=== PATIENT | male | born 1990 | race Caucasian/White ===

== ENCOUNTER 2017-06-18 01:47 | Emergency (ER) | payer BC ==
[2017-06-18] MEDS ORDERED: Acetaminophen TAB* 325 MG PO ONE (02:09)
--- NOTE | 2017-06-18 02:10 | ED ---
Lower Extremity - HPI Summary HPI Summary: 26M presents with right ankle pain today. He states he was walking down the driving way and felt a pop. He states it brought him to his knees. He denies any numbness or tingling. He denies any previous injury to the area. He states the pain brought him to his knees. He has not been able to ambulate since. He took ibuprofen for pain. He inverted his ankle. smells of ETOH. - History of Current Complaint Chief Complaint: EDExtremityLower Stated Complaint: RIGHT ANKLE INJURY Time Seen by Provider: 06/18/17 02:00 Pain Intensity: 10 - Allergies/Home Medications Allergies/Adverse Reactions: Allergies Allergy/AdvReac Type Severity Reaction Status Date / Time Amoxicillin Allergy Hives Verified 07/18/15 15:53 Sulfa Antibiotics Allergy Hives Verified 07/18/15 15:53 PMH/Surg Hx/FS Hx/Imm Hx Endocrine/Hematology History: Denies: Hx Diabetes Respiratory History: Reports: Hx Asthma Denies: Hx Chronic Obstructive Pulmonary Disease (COPD), Hx Lung Cancer Sensory History: Denies: Hx Contacts or Glasses Opthamlomology History: Denies: Hx Contacts or Glasses Neurological History: Denies: Hx Transient Ischemic Attacks (TIA) Psychiatric History: Denies: Hx Anxiety - Surgical History Surgery Procedure, Year, and Place: appy Infectious Disease History: No Infectious Disease History: Denies: Traveled Outside the in Last 30 Days - Family History Known Family History: Positive: None - Social History Alcohol Use: Occasionally Substance Use Type: Reports: None Smoking Status (MU): Current Every Day Smoker Type: Cigarettes Amount Used/How Often: 1 pack daily Have You Smoked in the Last Year: Yes Review of Systems Negative: Fever Negative: Chest Pain Negative: Shortness Of Breath Positive: Myalgia - right ankle injury All Other Systems Reviewed And Are Negative: Yes Physical Exam Triage Information Reviewed: Yes Vital Signs On Initial Exam: Initial Vitals Temp Pulse Resp BP Pulse Ox 97.9 F 110 16 130/84 99 06/18/17 01:49 06/18/17 01:49 06/18/17 01:49 06/18/17 01:49 06/18/17 01:49 Vital Signs Reviewed: Yes Appearance: Positive: Well-Appearing Skin: Positive: Warm, Dry Head/Face: Positive: Normal Head/Face Inspection Eyes: Positive: Normal, Conjunctiva Clear Respiratory/Lung Sounds: Positive: Clear to Auscultation, Breath Sounds Present Cardiovascular: Positive: Normal, RRR Musculoskeletal: Positive: Limited @ - right ankle, Edema Right - lateral aspect right ankle, Other - good pulse, capillary refill<2 secs, sensation grossly intact, tenderness over lateral aspect right ankle Neurological: Positive: Normal Diagnostics - Vital Signs Vital Signs Temp Pulse Resp BP Pulse Ox 06/18/17 01:49 97.9 F 110 16 130/84 99 - Laboratory Lab Statement: Any lab studies that have been ordered have been reviewed, and results considered in the medical decision making process. - Radiology ankle Xray Interpretation: No Acute Changes Radiology Interpretation Completed By: ED Physician Lower Extremity Course/Dx - Course Course Of Treatment: 26M presents with right ankle pain today. He states he was walking down the driving way and felt a pop. He states it brought him to his knees. He denies any numbness or tingling. He denies any previous injury to the area. He states the pain brought him to his knees. He has not been able to ambulate since. He took ibuprofen for pain. He inverted his ankle. on exam tenderness over lateral aspect of right ankle, neurovascular intact. xray read by me as normal. will treat as sprain with crutches. SOHA. patient understand and agrees with plan. - Diagnoses Differential Diagnosis/HQI/PQRI: Positive: Fracture (Closed), Sprain, Strain Provider Diagnoses: Right ankle injury Discharge - Discharge Plan Condition: Good Disposition: HOME Patient Education Materials: Ankle Sprain (ED) Referrals: [facility] [place] [facility]IAN REFERRAL [Outside] Additional Instructions: Stay off ankle as much as possible Ice, elevate, keep in [place] Ibuprofen or tyenlol every 6 hours for pain Follow up with primary if no improvement Return to ED if develop or any new or worsening symptoms
[2017-06-18 03:01] VITALS: BP 130/84
--- NOTE | 2017-06-18 07:58 | RAD ---
INDICATION: Right ankle injury COMPARISON: None TECHNIQUE: AP, lateral, and oblique views were obtained. FINDINGS: The bony structures, joint spaces, and soft tissues are normal for age. IMPRESSION: NEGATIVE EXAMINATION.
== END 2017-06-18 02:30 | disposition home or self-care (01) ==
LOC: ED 01:47
DX: S99.911A Unspecified injury of right ankle, initial encounter (principal); X50.9XXA Other and unspecified overexertion or strenuous movements or postures, initial encounter; Y93.9 Activity, unspecified; Y92.9 Unspecified place or not applicable; F17.210 Nicotine dependence, cigarettes, uncomplicated
CPT/HCPCS: 99282; A9270-GY

== ENCOUNTER 2017-12-30 14:08 | Emergency (ER) | payer BC, OTHER ==
--- NOTE | 2017-12-30 14:25 | UC ---
Laceration HPI - HPI Summary HPI Summary: 27 yo male presents with puncture wound to left foot. He tells me that last night he was intoxicated walking barefoot in a yard and stepped on a piece of lina metal. Sustained a puncture wound to the bottom of his foot. He cleaned it out well with soap and water and put a band-aid on it. He is here today because his last tetanus shot was about 10 years ago and he would like this updated. Ambulating without difficulty or pain. Denies fever or chills. - History Of Current Complaint Stated Complaint: FOOT LAC Time Seen by Provider: 12/30/17 14:25 Hx Obtained From: Patient Laceration Location: Foot Mechanism Of Injury: Sharp Trauma Onset/Duration: Sudden Onset - Allergies/Home Medications Allergies/Adverse Reactions: Allergies Allergy/AdvReac Type Severity Reaction Status Date / Time amoxicillin Allergy Hives Verified 12/30/17 14:19 Sulfa (Sulfonamide Allergy Hives Verified 12/30/17 14:19 Antibiotics) Home Medications: Home Medications Acetaminophen [Acetaminophen Extra Strength] 1,000 mg PO ONCE 12/30/17 [History Confirmed 12/30/17] PMH/Surg Hx/FS Hx/Imm Hx Respiratory History: Asthma Other History Of: Negative For: HIV - Surgical History Surgical History: Yes Surgery Procedure, Year, and Place: appy - Family History Known Family History: Positive: None - Social History Lives: Alone Alcohol Use: Occasionally Substance Use Type: None Smoking Status (MU): Current Every Day Smoker Type: Cigarettes Amount Used/How Often: 1 pack daily Have You Smoked in the Last Year: Yes Review of Systems Constitutional: Negative Skin: Other - Puncture wound left plantar foot Respiratory: Negative Cardiovascular: Negative Neurovascular: Negative Musculoskeletal: Negative Neurological: Negative Psychological: Negative All Other Systems Reviewed And Are Negative: Yes Physical Exam - Summary Physical Exam Summary: GENERAL: NAD. WDWN. No pain distress. SKIN: LEFT FOOT: On the plantar foot pad inferior to the great toe there is a 5mm abrasion and puncture wound. No streaking, bleeding, or drainage. NECK: Supple. Nontender. No lymphadenopathy. CHEST: No accessory muscle use. Breathing comfortably and in no distress. CV: RRR. Without m/r/g. NEURO: Alert. CN II-XII grossly intact. PSYCH: Age appropriate behavior. Triage Information Reviewed: Yes Vital Signs: Vital Signs: Temp Pulse Resp BP Pulse Ox 98.3 F 85 18 124/76 100 12/30/17 14:21 12/30/17 14:21 12/30/17 14:21 12/30/17 14:21 12/30/17 14:21 Laceration Course/Dx - Course/Dx Course Of Treatment: Wound appears clean and without FB. tdap updated today. Keep wound clean and covered with band-aid until well healed. - Differential Dx - Laceration/Wound Provider Diagnoses: Puncture wound left foot Discharge - Sign-Out/Discharge Documenting (check all that apply): Discharge/Admit/Transfer - Discharge Plan Condition: Stable Disposition: HOME Patient Education Materials: Puncture Wound (ED) Referrals: No Primary Care Phys,NOPCP [Primary Care Provider] - Additional Instructions: If you develop a fever, shortness of breath, chest pain, new or worsening symptoms - please call your PCP or go to the ED. Your tetanus shot was updated today - Billing Disposition and Condition Condition: STABLE Disposition: Home
[2017-12-30 14:27] VITALS: BP 124/76
[2017-12-30] MEDS ORDERED: Tetan/Diph/Pertus SYR(Tdap)* 0.5 ML SYR(BOOSTRIX) use SYR IM ONE (14:31)
== END 2017-12-30 14:44 | disposition home or self-care (01) ==
LOC: UCEAST 14:08
DX: S91.332A Puncture wound without foreign body, left foot, initial encounter (principal); W22.8XXA Striking against or struck by other objects, initial encounter; Y93.01 Activity, walking, marching and hiking; Y92.007 Garden or yard of unspecified non-institutional (private) residence as the place of occurrence of the external cause; Z88.0 Allergy status to penicillin; Z88.2 Allergy status to sulfonamides; F17.210 Nicotine dependence, cigarettes, uncomplicated
CPT/HCPCS: 90471; 90715; 99211; G0463

== ENCOUNTER 2018-05-08 21:01 | Emergency (ER) | payer OTHER ==
--- NOTE | 2018-05-08 21:36 | ED ---
Laceration/Wound HPI - HPI Summary HPI Summary: A 27 y/o male presents to the ED c/o a left thumb laceration at 20:10 2017. 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 He rates his pain as 1/10. He denies Fever, Chills, Erythema (eyes), Sore throat , Chest pain, Shortness of Breath, Cough, Abdominal pain, Vomiting, Nausea, Dysuria, Hematuria, Myalgia, Edema, Rash and Dizziness. tetanus UTD - History of Current Complaint Stated Complaint: LT THUMB LAC Time Seen by Provider: 05/08/18 21:21 Hx Obtained From: Patient Onset/Duration: Sudden Onset Pain Intensity: 1 Pain Scale Used: 0-10 Numeric - Allergy/Home Medications Allergies/Adverse Reactions: Allergies Allergy/AdvReac Type Severity Reaction Status Date / Time amoxicillin Allergy Hives Verified 05/08/18 21:05 Sulfa (Sulfonamide Allergy Hives Verified 05/08/18 21:05 Antibiotics) PMH/Surg Hx/FS Hx/Imm Hx Endocrine/Hematology History: Denies: Hx Diabetes Respiratory History: Reports: Hx Asthma Denies: Hx Chronic Obstructive Pulmonary Disease (COPD), Hx Lung Cancer Sensory History: Denies: Hx Contacts or Glasses Opthamlomology History: Denies: Hx Contacts or Glasses Neurological History: Denies: Hx Transient Ischemic Attacks (TIA) Psychiatric History: Denies: Hx Anxiety - Surgical History Surgery Procedure, Year, and Place: appy - Immunization History Date of Tetanus Vaccine: unk Date of Influenza Vaccine: none Infectious Disease History: No Infectious Disease History: Denies: Traveled Outside the [place] in Last 30 Days - Family History Known Family History: Positive: Cardiac Disease Negative: Hypertension, Diabetes - Social History Alcohol Use: Occasionally Substance Use Type: Reports: None Smoking Status (MU): Current Every Day Smoker Type: Cigarettes Amount Used/How Often: 1 pack daily Have You Smoked in the Last Year: Yes Review of Systems Negative: Fever, Chills Negative: Erythema Negative: Sore Throat Negative: Chest Pain Negative: Shortness Of Breath, Cough Negative: Abdominal Pain, Vomiting, Nausea Negative: dysuria, hematuria Negative: Myalgia, Edema Positive: Other - positive: laceration. Negative: Rash Neurological: Negative - dizziness All Other Systems Reviewed And Are Negative: Yes Physical Exam - Summary Physical Exam Summary: General: Well appearing, no distress Cardiovascular: Skin is well perfused Pulmonary: No respiratory distress, no tachypnea Abdomen: Non-distended Skin: Warm, pink, dry Psych: Normal affect Neuro: A&Ox3 Triage Information Reviewed: Yes Vital Signs On Initial Exam: Initial Vitals Temp Pulse Resp BP Pulse Ox 97.9 F 97 18 147/115 98 05/08/18 21:03 05/08/18 21:03 05/08/18 21:03 05/08/18 21:03 05/08/18 21:03 Vital Signs Reviewed: Yes Procedures - Laceration/Wound Repair 1 Location: upper extremity - left thumb Description: Linear Length, Depth and Shape: 1 cm Closure: Skin Adhesive Diagnostics - Vital Signs Vital Signs Temp Pulse Resp BP Pulse Ox 05/08/18 21:03 97.9 F 97 18 147/115 98 - Laboratory Lab Statement: Any lab studies that have been ordered have been reviewed, and results considered in the medical decision making process. Laceration Repair Course/Dx - Course Course Of Treatment: 27 y/o male presents to the ED c/o a left thumb laceration at 20:10 05/08/2018. I performed a laceration repair. The pt will be discharged and is agreeable to this plan. Dx: laceration - Clinical Impression Provider Diagnoses: Laceration Discharge - Sign-Out/Discharge Documenting (check all that apply): Patient Departure - DC - Discharge Plan Condition: Stable Disposition: HOME Patient Education Materials: Laceration (ED) Referrals: [facility] [place] [facility]ERR[facility] [Outside] (2-3 days) Additional Instructions: RETURN TO THE EMERGENCY DEPARTMENT FOR CHANGING OR WORSENING SYMPTOMS - Billing Disposition and Condition Condition: STABLE Disposition: Home - Attestation Statements Document Initiated by Scribe: Yes Documenting Scribe: Horacio Mary Provider For Whom Loly is Documenting (Include Credential): Jacques March MD Scribe Attestation: I, Horacio Mary, scribed for Jacques March MD on 05/08/18 at 2200. Scribe Documentation Reviewed: Yes Provider Attestation: The documentation as recorded by the Horacio butts accurately reflects the service I personally performed and the decisions made by me, Jacques March MD
[2018-05-08 21:45] VITALS: BP 135/80
== END 2018-05-08 21:44 | disposition home or self-care (01) ==
LOC: ED 21:01
DX: S61.012A Laceration without foreign body of left thumb without damage to nail, initial encounter (principal); W26.0XXA Contact with knife, initial encounter; Y93.G1 Activity, food preparation and clean up; Y92.511 Restaurant or cafe as the place of occurrence of the external cause; F17.210 Nicotine dependence, cigarettes, uncomplicated
CPT/HCPCS: 99281

== ENCOUNTER 2018-05-24 09:42 | Emergency (ER) | payer OTHER ==
[2018-05-24 09:58] VITALS: BP 144/85
--- NOTE | 2018-05-24 11:02 | UC ---
Back Pain HPI - HPI Summary HPI Summary: Patient describes stepping off a curb over a snowbank yesterday and he felt some pain in his left low back. It has become progressively worse since then with associated weakness and intermittent numbness/tingling in his left leg. Patient states he tried to reach for something in a cabinet today and ended up on the floor due to the pain. Is unable to bear much weight on the left leg and feels he will fall down. Patient denies any chronic back pain or previous injury. He took 1000 mg of Tylenol and 440 mg of naproxen without any relief of symptoms. Took a Soma last night without any relief. Denies saddle anesthesia. No loss of bowel or bladder control. - History of Current Complaint Chief Complaint: UCBackPain Stated Complaint: BACK PAIN Time Seen by Provider: 05/24/18 10:27 Hx Obtained From: Patient Onset/Duration: Gradual Onset, Lasting Days - 1 DAY, Still Present Timing: Constant Severity Initially: Moderate Severity Currently: Severe Pain Intensity: 8 Pain Scale Used: 0-10 Numeric Back Pain: Is Discrete @ - LEFT LOW BACK, Radiates To - LEFT LEG Aggravating Factor(s): Movement, Bending, Walking Alleviating Factor(s): Position Associated Signs And Symptoms: Positive: Weakness, Pain with Weight Bearing. Negative: Swelling, Redness, Bladder Incontinence, Bowel Incontinence - Allergies/Home Medications Allergies/Adverse Reactions: Allergies Allergy/AdvReac Type Severity Reaction Status Date / Time amoxicillin Allergy Hives Verified 05/24/18 09:58 Sulfa (Sulfonamide Allergy Hives Verified 05/24/18 09:58 Antibiotics) Home Medications: Home Medications Carisoprodol [Soma] 250 mg PO ONCE PRN 05/24/18 [History Confirmed 05/24/18] Naproxen Sodium [Aleve] 440 mg PO ONCE PRN 05/24/18 [History Confirmed 05/24/18] PMH/Surg Hx/FS Hx/Imm Hx Respiratory History: Asthma Other History Of: Negative For: HIV - Surgical History Surgical History: Yes Surgery Procedure, Year, and Place: appy - Family History Known Family History: Positive: Cardiac Disease Negative: Hypertension, Diabetes - Social History Alcohol Use: None Substance Use Type: Marijuana Smoking Status (MU): Former Smoker Type: Cigarettes Amount Used/How Often: 1 pack daily Have You Smoked in the Last Year: Yes When Did the Patient Quit Smoking/Using Tobacco: 05/03/18 Review of Systems All Other Systems Reviewed And Are Negative: Yes Constitutional: Positive: Negative Skin: Positive: Negative Respiratory: Positive: Negative Cardiovascular: Positive: Negative Gastrointestinal: Positive: Negative Musculoskeletal: Positive: Arthralgia, Decreased ROM, Myalgia Neurological: Positive: Weakness, Paresthesia Physical Exam Triage Information Reviewed: Yes Appearance: Well-Nourished, Pain Distress - MOD/SEVERE PAIN WITH ANY MOVEMENT. Vital Signs: Initial Vital Signs Temp 98.6 F 05/24/18 09:51 Pulse 96 05/24/18 09:51 Resp 18 05/24/18 09:51 BP 144/85 05/24/18 09:51 Pulse Ox 98 05/24/18 09:51 Vital Signs Reviewed: Yes Eyes: Positive: Conjunctiva Clear ENT: Positive: Hearing grossly normal Neck: Positive: Supple Respiratory: Positive: No respiratory distress, No accessory muscle use Cardiovascular: Positive: Pulses Normal Abdomen Description: Positive: Soft Musculoskeletal: Positive: No Edema, ROM Limited @ - LEFT HIP AND KNEE, Other: - POSITIVE STRAIGHT LEG RAISE LEFT. PT UNABLE TO BEAR BODY WEIGHT ON LEFT LEG. 4 /5 STRENGTH. Neurological: Positive: Alert Psychological: Positive: Age Appropriate Behavior Skin: Negative: Rashes Back Pain Course/Dx - Course Course Of Treatment: PATIENT WITH PAIN OUT OF PROPORTION TO DESCRIBED MECHANISM OF INJURY. DISCUSSED X-RAY TODAY WITH OUTPATIENT FOLLOW-UP AND PROBABLE MRI. PATIENT USED OTC TYLENOL AND NAPROXEN X2 AND ALSO TOOK A SOMA LAST NIGHT WITH NO IMPROVEMENT IN SYMPTOMS. GIVEN LACK OF RESPONSE TO MEDICATIONS AT HOME AND PATIENTS DEBILITATING DISCOMFORT HE HAS OPTED TO GO TO THE ED FOR FURTHER EVALUATION. - Differential Dx/Diagnosis Provider Diagnoses: LUMBAR RADICULOPATHY, LEFT LOW BACK STRAIN Discharge - Sign-Out/Discharge Documenting (check all that apply): Patient Departure All imaging exams completed and their final reports reviewed: No Studies - Discharge Plan Condition: Stable Disposition: HOME Patient Education Materials: Low Back Strain (ED), Lumbar Radiculopathy (ED) Referrals: No Primary Care Phys,NOPCP [Primary Care Provider] - Additional Instructions: YOUR PAIN IS OUT OF PROPORTION TO YOUR DESCRIBED MECHANISM OF INJURY. GO TO THE ED FOR FURTHER EVAL AND PAIN CONTROL. - Billing Disposition and Condition Condition: STABLE Disposition: Home
== END 2018-05-24 10:58 | disposition home health service (06) ==
LOC: UCEAST 09:42
DX: S39.012A Strain of muscle, fascia and tendon of lower back, initial encounter (principal); M54.16 Radiculopathy, lumbar region; J45.909 Unspecified asthma, uncomplicated; Z87.891 Personal history of nicotine dependence; Z88.0 Allergy status to penicillin; Z88.2 Allergy status to sulfonamides; X58.XXXA Exposure to other specified factors, initial encounter; Y92.9 Unspecified place or not applicable
CPT/HCPCS: 99212; G0463

== ENCOUNTER 2018-11-06 14:47 | Emergency (ER) | payer OTHER ==
--- NOTE | 2018-11-06 15:14 | ED ---
Psychiatric Complaint - HPI Summary HPI Summary: Patient is a 27 y/o M presenting to ED for MHE. He states that he has been having very vivid dreams of cutting his wrists, killing himself for the past week and he cannot stop having these thoughts. He states, "I'm in a crisis, I'm not doing good". Patient notes difficulty sleeping this past week. He notes that he spoke to his therapist today as well. Patient was placed on antidepressant for the first time in his life six weeks ago, Effexor 75 mg XR. PCP is Dr. Martell. PMHx of anxiety and depression, asthma as a child. PSHx of appendectomy. 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 On triage, pain is denied. Nothing is noted to aggravate/ alleviate Sx. Home medications and allergies are reviewed. 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 - History Of Current Complaint Chief Complaint: EDMentalHealth Time Seen by Provider: 11/06/18 15:03 Hx Obtained From: Patient Onset/Duration: Lasting Weeks - past week, Still Present Timing: Weeks - past week Severity Currently: None - pain denied Aggravating Factor(s): Nothing Alleviating Factor(s): Nothing Associated Signs And Symptoms: Positive: Sleep Disturbance Has Suicidal: Reports: Thoughts - Allergies/Home Medications Allergies/Adverse Reactions: Allergies Allergy/AdvReac Type Severity Reaction Status Date / Time amoxicillin Allergy Hives Verified 05/24/18 11:36 Sulfa (Sulfonamide Allergy Hives Verified 05/24/18 11:36 Antibiotics) PMH/Surg Hx/FS Hx/Imm Hx Endocrine/Hematology History: Denies: Hx Anticoagulant Therapy, Hx Blood Disorders, Hx Diabetes Respiratory History: Reports: Hx Asthma Denies: Hx Chronic Obstructive Pulmonary Disease (COPD), Hx Lung Cancer Musculoskeletal History: Denies: Hx Arthritis, Hx Back Problems Sensory History: Denies: Hx Contacts or Glasses Opthamlomology History: Denies: Hx Contacts or Glasses Neurological History: Denies: Hx Peripheral Neuropathy, Hx Spinal Cord Injury, Hx Transient Ischemic Attacks (TIA) Psychiatric History: Reports: Hx Anxiety, Hx Depression - Surgical History Surgery Procedure, Year, and Place: appy - Immunization History Date of Tetanus Vaccine: unk Date of Influenza Vaccine: none Infectious Disease History: No Infectious Disease History: Denies: Traveled Outside the [place] in Last 30 Days - Family History Known Family History: Positive: Cardiac Disease Negative: Hypertension, Diabetes - Social History Alcohol Use: None Alcohol Amount: H/o abuse Substance Use Type: Reports: Marijuana - for anxiety Hx Tobacco Use: Yes - not currently - quit in April 2018 Smoking Status (MU): Former Smoker Type: Cigarettes Amount Used/How Often: 1 pack daily Have You Smoked in the Last Year: Yes Review of Systems Constitutional: Other - POSITIVE - SLEEP DISTURBANCE Negative: Fever Psychological: Other - POSITIVE - SI All Other Systems Reviewed And Are Negative: Yes Physical Exam - Summary Physical Exam Summary: VITAL SIGNS: Reviewed. GENERAL: Patient is a well-developed and nourished male who is lying comfortable in the stretcher. Patient is not in any acute respiratory distress. HEAD AND FACE: No signs of trauma. No ecchymosis, hematomas or skull depressions. No sinus tenderness. EYES: PERRLA, EOMI x 2, No injected conjunctiva, no nystagmus. EARS: Hearing grossly intact. Ear canals and tympanic membranes are within normal limits. MOUTH: Oropharynx within normal limits. NECK: Supple, trachea is midline, no adenopathy, no JVD, no carotid bruit, no c- spine tenderness, neck with full ROM. CHEST: Symmetric, no tenderness at palpation LUNGS: Clear to auscultation bilaterally. No wheezing or crackles. CVS: Regular rate and rhythm, S1 and S2 present, no murmurs or gallops appreciated. ABDOMEN: Soft, non-tender. No signs of distention. No rebound no guarding, and no masses palpated. Bowel sounds are normal. EXTREMITIES: FROM in all major joints, no edema, no cyanosis or clubbing. NEURO: Alert and oriented x 3. No acute neurological deficits. Speech is normal and follows commands. SKIN: Dry and warm PSYCH: Depressed, quiet, and endorses suicidal thoughts. No homicidal thoughts or plan. No signs of psychosis or pressure speech. No tangential speech. Triage Information Reviewed: Yes Vital Signs On Initial Exam: Initial Vitals Temp Pulse Resp BP Pulse Ox 99.0 F 91 18 174/114 99 11/06/18 14:51 11/06/18 14:51 11/06/18 14:51 11/06/18 14:51 05/06/19 14:51 Vital Signs Reviewed: Yes Diagnostics - Vital Signs Vital Signs Temp Pulse Resp BP Pulse Ox 11/06/18 14:51 99.0 F 91 18 174/114 99 - Laboratory Result Diagrams: 11/06/18 15:40 11/06/18 15:40 Lab Statement: Any lab studies that have been ordered have been reviewed, and results considered in the medical decision making process. Re-Evaluation - Re-Evaluation First Eval Re-Evaluation Time: 15:33 Comment: Patient medically cleared for MHE. Course/Dx - Course Assessment/Plan: Patient is a 27 y/o M presenting to ED for MHE. He states that he has been having very vivid dreams of cutting his wrists, killing himself for the past week and he cannot stop having these thoughts. He states, "I'm in a crisis, I'm not doing good". Blood work w/o a significant abnormality. He is medically cleared. He is awaiting for a MHE. Patient is hemodynamically stable and A+O x 3. Dr. Spencer assessed the patient and he recommends for the patient to be discharged home with follow-up with the PCP and [facility]. Diagnosis is unspecified depression. - Differential Dx/Clinical Impression Differential Diagnosis/HQI/PQRI: Positive: Depression, Suicidal Ideation Provider Diagnosis: Depression - Physician Notifications Discussed Care Of Patient With: Lb Spencer Time Discussed With Above Provider: 20:07 Instructed by Provider To: Other - Patient's case was reviewed by Dr. Spencer, patient will be discharged to home. Discharge - Sign-Out/Discharge Documenting (check all that apply): Patient Departure - discharge Patient Received Moderate/Deep Sedation with Procedure: No - Discharge Plan Condition: Stable Disposition: HOME Patient Education Materials: Depression (DC), Anxiety (ED), Suicide Prevention (ED) Referrals: [facility],Medical [Other] (Please follow up with Dr Wilkerson tomorrow morning as scheduled) [facility] [Outside] [facility] [Outside] No Primary Care Phys,NOPCP [Primary Care Provider] - - Billing Disposition and Condition Condition: STABLE Disposition: Home - Attestation Statements Document Initiated by Scribe: Yes Documenting Scribe: ELMA HUTTON Provider For Whom Scribe is Documenting (Include Credential): SCAR PELAYO MD Scribe Attestation: I, ELMA HUTTON, scribed for SCAR PELAYO MD on 11/07/18 at 1056. Scribe Documentation Reviewed: Yes Provider Attestation: The documentation as recorded by the scribeELMA accurately reflects the service I personally performed and the decisions made by me, SCAR PELAYO MD Status of Scribe Document: Viewed
[2018-11-06 15:46] LABS: ABS Eosinophils 0.1 10^3/ul (0-0.6); ABS Monocytes 0.4 10^3/ul (0-0.8); ABS Neutrophils 5.4 10^3/ul (1.5-7.7); Eosinophil % 1.5 %; Hematocrit 47 % (42-52); Hemoglobin 16.3 g/dL (14.0-18.0); Lymphocyte % 33.4 %; Mean Corpuscular HGB Conc 34 g/dL (31-36); Mean Corpuscular Hemoglobin 30 pg (27-31); Mean Corpuscular Volume 88 fL (80-94); Mean Platelet Volume 7.8 fL (7.4-10.4); Nucleated Red Blood Cells % 0.1; Platelet Count 262 10^3/uL (150-450); Red Blood Count 5.39 10^6 /uL (4.18-5.48); Red Cell Distribution Width 13 % (10.5-15)
[2018-11-06 16:02] LABS: ALT 22 U/L (7-52); AST 20 U/L (13-39); Alkaline Phosphatase 54 U/L (34-104); Anion Gap 7 mmol/L (2-11); BUN/Creatinine Ratio 11.8 (8-20); Blood Urea Nitrogen 12 mg/dL (6-24); CO2 Carbon Dioxide 27 mmol/L (22-32); Calcium 10.1 mg/dL (8.6-10.3); Chloride 106 mmol/L (101-111); EGFR African American 106.8 (>60); EGFR Non-African American 88.3 (>60); Globulin 2.5 g/dL (2-4); Glucose 98 mg/dL (70-100); Potassium 4.1 mmol/L (3.5-5.0); Sodium 140 mmol/L (135-145); Total Protein 7.5 g/dL (6.4-8.9)
[2018-11-06 16:21] LABS: Urine Appearance Cloudy; Urine Bilirubin Negative (Negative); Urine Blood Negative (Negative); Urine Color Yellow; Urine Glucose Negative (Negative); Urine Ketones Negative (Negative); Urine Nitrite Negative (Negative); Urine Protein Negative (Negative); Urine Specific Gravity 1.018 (1.010-1.030); Urine Urobilinogen Negative (Negative)
[2018-11-06 16:35] LABS: Alcohol < 10 mg/dL (<10); Salicylate < 2.50 mg/dL (<30)
[2018-11-06 16:42] LABS: Urine Benzodiazepine Screen None Detected (None Detect); Urine Opiates Screen None Detected (None Detect)
[2018-11-06 16:48] LABS: TSH (Thyroid Stimulating Horm) 1.43 mcIU/mL (0.34-5.60)
[2018-11-06 16:56] LABS: Acetaminophen < 15 mcg/mL
[2018-11-06] MEDS ORDERED: hydrOXYzine HCL TAB* 50 MG PO ONE (20:26)
[2018-11-06 20:57] VITALS: BP 116/82
== END 2018-11-06 20:54 | disposition home or self-care (01) ==
LOC: ED 14:47
DX: F32.9 Major depressive disorder, single episode, unspecified (principal); J45.909 Unspecified asthma, uncomplicated; F41.9 Anxiety disorder, unspecified; Z88.3 Allergy status to other anti-infective agents; Z88.2 Allergy status to sulfonamides; Z87.891 Personal history of nicotine dependence
CPT/HCPCS: 36415; 80053; 80307; 80320; 80329; 81003; 84443; 85025; 99284; A9270-GY; G0480

== ENCOUNTER 2019-03-22 14:53 | Emergency (ER) | payer OTHER ==
--- OUTSIDE RECORDS SUMMARY | 2019-03-22 15:44 | XMS REPORT | Summary of Care ---
:1990 Author Organization [facility] Address [address] [place] [address] Care Team Providers Name Role Phone Jordan Sawyer MD Primary Care Provider Reason for Visit Reason Comments Check Up upper gi pain, heart burn, acid reflux, nausea Encounter Details Date Type Department Care Team Description 02/14/2019 Office Visit [facility] Belen Lilly, Gastroesophageal reflux disease, esophagitis presence not specified (Primary Dx); Practice [facility] Epigastric pain [address] [place] [address] [place] [address] [phone] Allergies Active Allergy Reactions Severity Noted Date Comments Amoxicillin Rash 01/09/2008 Bee Anaphylaxis 02/12/2009 Sulfa Antibiotics Hives 01/09/2008 documented as of this encounter (statuses as of 02/14/2019) Medications Medication Sig Dispensed Refills Start Date End Date Status Aspirin-Acetaminophen Take by mouth. 0 Active -Caffeine (EXCEDRIN PO) EPINEPHrine (EPIPEN 1 Syringe by 1 Device 1 05/21/2013 Active 2-NICHO) 0.3 MG/0.3ML Injection route Injection Device NEEDED (anaphylaxis). clotrimazole Twice daily 1 Tube 0 09/21/2018 Active (LOTRIMIN) 1 % Apply externally CreamIndications: Tinea pedis of both feet albuterol HFA Take 2 Puffs by 1 Inhaler 1 11/08/2018 Active (VENTOLIN) 108 (90 inhalation Base) MCG/ACT EVERY FOUR Inhalation Aero HOURS NEEDED SolnIndications: (shortness of Asthma, unspecified breath, cough asthma severity, or wheeze). unspecified whether complicated, unspecified whether persistent triamcinolone Twice daily to 1 Tube 0 11/08/2018 Active (KENALOG,ARISTOCORT) affected area. 0.1 % Apply No more than 2 externally weeks CreamIndications: Eczema, unspecified type sertraline (ZOLOFT) Take 1 Tab by 60 Tab 0 01/30/2019 Active 100 MG Oral mouth DAILY. TabIndications: Anxiety and depression divalproex (DEPAKOTE 0 02/13/2019 Active ER) 500 MG Oral TABLET SR 24 HR Omeprazole 40 MG Oral Take 1 Cap by 30 Cap 2 02/14/2019 Active CAPSULE DELAYED mouth DAILY. 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 Overview: positive PPD in 2009, abnormal CXR in November 2011 with possible cavitary lesion, negative PPD and chest X-ray and equivocal Quantiferon in December 2011 Mild intermittent asthma Overview: albuterol very rarely, exercise Acne Eczema Anxiety and depression documented as of this encounter (statuses as of 02/14/2019) Resolved Problems Problem Noted Date Resolved Date Left ankle sprain 07/09/2014 06/05/2016 SHELLFISH ALLERGY 09/21/2018 Overview: anaphylaxis documented as of this encounter (statuses as of 02/14/2019) Immunizations Name Administration Dates Next Due DTAP Vaccine 11/14/1996, 04/01/1993, 06/04/1992, 03/25/1992, 01/14/1992 HIB 04/01/1993, 07/01/1992, 03/25/1992, 01/14/1992 Hepatitis A Vaccine Peds 01/09/2008, 03/16/2007 Hepatitis B Vaccine 11/03/1992, 05/09/1992, 03/25/1992 Influenza (IM) Preservative Free 05/22/2013, 04/22/2009 MENINGOCOCCAL CONJUGATE VACCINE 03/16/2007 MMR VACCINE 11/14/1996, 04/01/1993 PNEUMOCOCCAL POLYSACCHARIDE VACCINE 09/21/2018 Polio - Inactivated Vaccine 01/14/1992 TDAP Vaccine 09/14/2006 Toradol (60 mg) 08/02/2013 Varicella Vaccine Live 12/03/1997 documented as of this encounter Social History Tobacco Use Types Packs/Day Years Used Date Current Every Day Smoker Cigarettes 0.5 Smokeless Tobacco: Never Used Alcohol Use Drinks/Week oz/Week Comments No drank heavily. none since may 2018. going to Sex Assigned at Date Recorded Not on file Job Start Date Occupation Industry Not on file Not on file Not on file Travel History Travel Start Travel End No recent travel history available. documented as of this encounter Last Filed Vital Signs Vital Sign Reading Time Taken Comments Blood Pressure 130/84 02/14/2019 2:55 PM EDT Pulse 72 02/14/2019 2:55 PM EDT Temperature - - Respiratory Rate - - Oxygen Saturation 99% 02/14/2019 2:55 PM EDT Inhaled Oxygen Concentration - - Weight 76.2 kg (168 lb) 02/14/2019 2:55 PM EDT Height 177.8 cm (5' 10") 02/14/2019 2:55 PM EDT Body Mass Index 24.11 02/14/2019 2:55 PM EDT documented in this encounter Patient Instructions Patient InstructionsBelen Lilly FNP - 02/14/2019 2:40 PM EDTStart Prilosec Light bland diet until symptoms improve Call if symptoms persist or worsen documented in this encounter Progress Notes Belen Lilly FNP - 02/14/2019 2:40 PM EDT PATIENT: Adolph Crow : 1990 DATE OF SERVICE: 02/14/2019 CHIEF COMPLAINT: Chief Complaint Patient presents with Check Up upper gi pain, heart burn, acid reflux, nausea Subjective HISTORY OF PRESENT ILLNESS: Adolph Crow is a 28-y.o. male. HPI Increased reflux sx in past 2 weeks - increased burping, worse at night - wakes him up. Using OTC antacids. Dx with GERD as child - does not recall taking any medications for this Past Medical History: Diagnosis Date Acne Anxiety and depression BMI 33.0-33.9,adult CAP (community acquired pneumonia) CXR December 2011, confirmed on CTA with lymphadenopathy Eczema Migraine Dr. Reza, acute 12/10, Mild intermittent asthma albuterol very rarely, exercise Family History Problem Relation Age of Onset Breast Cancer Mother Cancer Maternal Grandmother CLL Anesth Problems No family history Arthritis No family history Clotting Disorder No family history Diabetes No family history Heart Disease No family history Hypertension No family history Kidney Disease No family history Thyroid Disease No family history Current Outpatient Medications Medication Sig albuterol HFA (VENTOLIN) 108 (90 Base) MCG/ACT Inhalation Aero Soln Take 2 Puffs by inhalation EVERY FOUR HOURS NEEDED (shortness of breath, cough or wheeze). Tdwwlvr-Yzxzrpemibfon-Vlullwzv (EXCEDRIN PO) Take by mouth. clotrimazole (LOTRIMIN) 1 % Apply externally Cream Twice daily divalproex (DEPAKOTE ER) 500 MG Oral TABLET SR 24 HR EPINEPHrine (EPIPEN 2-NICHO) 0.3 MG/0.3ML Injection Device 1 Syringe by Injection route NEEDED (anaphylaxis). Omeprazole 40 MG Oral CAPSULE DELAYED RELEASE Take 1 Cap by mouth DAILY. sertraline (ZOLOFT) 100 MG Oral Tab Take 1 Tab by mouth DAILY. triamcinolone (KENALOG,ARISTOCORT) 0.1 % Apply externally Cream Twice daily to affected area.No more than 2 weeks No current facility-administered medications for this visit. Allergies Allergen Reactions Amoxicillin Rash Bee Anaphylaxis Sulfa Antibiotics Hives Social History Socioeconomic History Marital status: Single Spouse name: Not on file Number of children: Not on file Years of education: Not on file Highest education level: Not on file Occupational History Not on file Social Needs Financial resource strain: Not on file Food insecurity: Worry: Not on file Inability: Not on file Transportation needs: Medical: Not on file Non-medical: Not on file Tobacco Use Smoking status: Current Every Day Smoker Packs/day: 0.50 Types: Cigarettes Smokeless tobacco: Never Used Substance and Sexual Activity Alcohol use: No Comment: drank heavily. none since may 2018. going to Drug use: Yes Types: Marijuana Comment: did cocaine in past. never IV Sexual activity: Yes Partners: Male Lifestyle Physical activity: Days per week: Not on file Minutes per session: Not on file Stress: Not on file Relationships Social connections: Talks on phone: Not on file Gets together: Not on file Attends buddhist service: Not on file Active member of club or organization: Not on file Attends meetings of clubs or organizations: Not on file Relationship status: Not on file Intimate partner violence: Fear of current or ex partner: Not on file Emotionally abused: Not on file Physically abused: Not on file Forced sexual activity: Not on file Other Topics Concern Back Care Not Asked Bike Helmet Not Asked Blood Transfusions Not Asked Caffeine Concern Not Asked Exercise Not Asked Hobby Hazards Not Asked International Travel Not Asked Service Not Asked Occupational Exposure Not Asked Seat Belt Not Asked Self-Exams Not Asked Sleep Concern Not Asked Special Diet Not Asked Stress Concern Not Asked Weight Concern Yes Social History Narrative No kids Male partner 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 Respiratory: Negative for cough and shortness of breath. Gastrointestinal: Positive for abdominal pain and heartburn. Negative for blood in stool, constipation, diarrhea, nausea and vomiting. Musculoskeletal: Negative for myalgias. Objective PHYSICAL EXAM: VITALS: BP 130/84 (BP Location: Left arm, Patient Position: Sitting) | Pulse 72 | Ht 5' 10" (1.778 m) | Wt 168 lb (76.2 kg) | SpO2 99% | BMI 24.11 kg/m Body mass index is 24.11 kg/m. Physical Exam Constitutional: He is oriented to person, place, and time. Vital signs are normal. He appears well-developed and well-nourished. HENT: Head: Normocephalic and atraumatic. Mouth/Throat: Oropharynx is clear and moist. Eyes: Pupils are equal, round, and reactive to light. EOM are normal. Neck: Normal range of motion. Cardiovascular: Normal rate. Pulmonary/Chest: Effort normal. He has no wheezes. Abdominal: Soft. Bowel sounds are normal. He exhibits no distension and no mass. There is no hepatosplenomegaly. There is tenderness in the epigastric area. There is no rigidity, no rebound and no guarding. No hernia. Lymphadenopathy: He has no cervical adenopathy. Neurological: He is alert and oriented to person, place, and time. No cranial nerve deficit or sensory deficit. Gait normal. Skin: Skin is warm and dry. No rash noted. He is not diaphoretic. No cyanosis. No pallor. Vitals reviewed. ASSESSMENT / IMPRESSION: ICD-9-CM ICD-10-CM 1. Gastroesophageal reflux disease, esophagitis presence not specified 530.81 K21.9 Omeprazole 40 MGOral CAPSULE DELAYED RELEASE 2. Epigastric pain 789.06 R10.13 Plan Start Prilosec Light bland diet until symptoms improve Call if symptoms persist or worsen - will refer to GI if needed Author: CAS Alicia 02/14/2019 16:19 documented in this encounter Plan of Treatment Health Maintenance Due Date Last Done Comments INFLUENZA VACCINE (#1) 2019 05/22/2013, 04/22/2009 DEPRESSION SCREENING 09/21/2020 Postponed from 2003 (Other) MENINGOCOCCAL VACCINE IMM Aged Out 03/16/2007 No longer eligible based on patient's age to complete this topic PNEUMOCOCCAL 0-64 YRS Completed 09/21/2018 HPV IMMUNIZATION SERIES Aged Out No longer eligible based on patient's age to complete this topic documented as of this encounter Goals Goal Patient Goal Associated Recent Patient-Stated? Author Type Problems Progress Depression Depression No Lb Wilkerson screen (PHQ-9) DO Tyree total score < 5 Note: This is an individualized treatment (depression) goal for Adolph Crow: Displayed above is your goal for a depression screening (PHQ-9) score that would indicate good control of your depression. Keep a regular sleep schedule Lifestyle No Lb Wilkerson DO Note: This is an individualized lifestyle goal for Adolph Crow: Please maintain a regular sleep schedule. This may help with some symptoms of depression. Take all prescribed medications as directed Self-management No Lb Wilkerson DO Note: This is an individualized self-management goal for Adolph Crow: Please take all prescribed medications as directed. 1. Do not skip doses. If you cannot afford your medications, talk with your doctor. 2. Use a pill reminder system such as a pill box if needed. Your pharmacist can help you with this. 3. Contact your Pharmacy 5 days before your medication runs out. If you cannot take your medications for any reasons, talk with your doctor. 4. Please bring all of your medication bottles and inhalers (or a list of all your medications/inhalers) with you to every visit. Potential barriers to meeting all of your care plan goals will continue to be addressed on an ongoing basis. documented as of this encounter Results Not on filedocumented in this encounter Visit Diagnoses Diagnosis Gastroesophageal reflux disease, esophagitis presence not specified - Primary Epigastric pain Abdominal pain, epigastric documented in this encounter Insurance Payer Benefit Plan / Subscriber ID Effective Dates Phone Address Type Group [place] xxxxxxxx 2019-Present Medicaid [place] documented as of this encounter
[2019-03-22 15:55] VITALS: BP 158/105
--- NOTE | 2019-03-22 16:02 | UC ---
Bite Injury/Animal HPI - HPI Summary HPI Summary: Pt is RHD male presents for eval of right 5th finger cat bite. Pt states last evening tried to give mom's cat a pill for fleas. Cat UTD on vaccinations Pt is on clinda x 24 hours for dental infetion. No analgesia taken Tdap utd Pt here because increased reddness and swelling. Pt washed with alcohol last night. Pt states today soaked in warm soaking water. Pt has appt with PCP scheduled tomorrow meds UTD - History of Current Complaint Chief Complaint: UCBiteInjury Stated Complaint: CAT BITE Time Seen by Provider: 03/22/19 15:45 Hx Obtained From: Patient Severity Currently: Moderate Severity Initially: Moderate Pain Intensity: 7 Pain Scale Used: 0-10 Numeric Onset/Duration: Gradual Onset - Allergies/Home Medications Allergies/Adverse Reactions: Allergies Allergy/AdvReac Type Severity Reaction Status Date / Time amoxicillin Allergy Hives Verified 03/22/19 15:55 Sulfa (Sulfonamide Allergy Hives Verified 03/22/19 15:55 Antibiotics) PMH/Surg Hx/FS Hx/Imm Hx Previously Healthy: Yes Psychological History: Anxiety Other History Of: Negative For: HIV, Anticoagulant Therapy - Surgical History Surgical History: Yes Surgery Procedure, Year, and Place: appy - Family History Known Family History: Positive: Cardiac Disease, Non-Contributory Negative: Hypertension, Diabetes - Social History Occupation: Employed Part-time Lives: With Family Alcohol Use: None Alcohol Amount: H/o abuse Substance Use Type: Marijuana Smoking Status (MU): Light Every Day Tobacco Smoker Type: Cigarettes Amount Used/How Often: 1 pack daily Have You Smoked in the Last Year: Yes When Did the Patient Quit Smoking/Using Tobacco: 05/03/18 Review of Systems All Other Systems Reviewed And Are Negative: Yes Constitutional: Positive: Negative. Negative: Fever, Chills Skin: Positive: Other - swelling pain right 5th finger Musculoskeletal: Positive: Other: - right 5th finger Is Patient Immunocompromised?: No Physical Exam - Summary Physical Exam Summary: Vital Signs Reviewed: Yes A+Ox3, no distress Eyes: Conjunctiva Clear ENT: Hearing grossly normal neck: supple Respiratory: Positive: No respiratory distress, No accessory muscle use Cardiovascular: skin color reflect adequate perfusion 2+ radial, ulnar, CBT< 2 sec Musculoskeletal Exam: WALKER x 4 without difficulty + flex/ext MCP, pip, dip - pt with pain at MCP Neurological: Positive: Alert, ambulatory without difficulty + gross sensation throughout finger Psychological: Positive: Normal Response To proivder Skin: Positive: no rash, no ecchymosis, pt with puncture wond to base right 5th finger along 1st phalynx, mild edema erythema with from mid middle phalynx, to dorsum just prox MCP Triage Information Reviewed: Yes Vital Signs: Initial Vital Signs Temp 99.4 F 03/22/19 15:50 Pulse 96 03/22/19 15:50 Resp 17 03/22/19 15:50 BP 158/105 03/22/19 15:50 Pulse Ox 97 03/22/19 15:50 Diagnostics - Radiology No standard instances Radiology Interpretation Completed By: Radiologist - Patient Name: JULIANA CHRIS Medical Record#: [id number] Ordering Physician: Moira Espino MD Acct.#: [id number] : 1990 Age: 28 Sex: M Location: [facility] Exam Date: 03/22/19 1608 ADM Status: REG ER Order Information: FINGER RIGHT SMALL Accession Number: [id number] CPT: 28950 Indication: Right fifth finger injury. 3 views of the right fifth finger demonstrates no fracture. Soft tissue swelling is noted. IMPRESSION: No fracture of the right fifth digit is noted. <Electronically signed by Katya Infante MD in OV> 03/22/191616 Dictated By: Katya Infante MD Dictated Date/Time : 03/22/191615 Transcribed Date/Time: 03/22/191615 Copy to: CC:Moira Espino MD; Lb Wilkerson DO [facility] [address] [address] ph ) ph ([phone]) ph ([phone]) This report is only to be considered final once signed by the Provider(s) as displayed in the "<Electronically Signed by >" field (s). Absence of a signature indicates the report is in a draft status and still needs to be finalized. In the event this document was created by someone other than the signing Provider, the individual initiating the document will be listed in the "Entered by:" or "Dictated by:" padilla. 1 of 1 Bite Injury Course/Dx - Course Course Of Treatment: Pt presents for eval of 5th finger - puncture wound from domestic cat last evening pt with increased reddness and discomfort today pt with puncture wound and erythema Pt with mild discomfort with flexion - no concern for tenosynovitis at this time will image for fx and fb splint epsom salt soaks add Doxy and clinda sling work note pt with pcp appt tomorrow already scheduled strict return precautions pt comfortable and in agreement with plan - Differential Dx/Diagnosis Provider Diagnosis: Cat bite of right hand with infection Discharge ED - Sign-Out/Discharge Documenting (check all that apply): Patient Departure All imaging exams completed and their final reports reviewed: Yes - Discharge Plan Condition: Stable Disposition: HOME Prescriptions: Bacillus Coagulans [Probiotic] 1 each PO DAILY #14 capsule. DOXYcycline CAP(*) [DOXYcycline 100MG CAP(*)] 100 mg PO BID #20 cap Patient Education Materials: Animal Bite (ED) Forms: *Work Release Referrals: Jim Monae MD [Medical Doctor] - Lb Wilkerson DO [Primary Care Provider] - Additional Instructions: - Take both antibiotics as prescribed until gone - you will likely get diarrhea - it is recommended you take probiotics (found in the vitamin aisle) and eat yogurt to help with the diarrhea - wear finger splint as much as possible - keep arm elevated able the level of your chest as much as possible - soak wound in warm epsom salt water for 10 minutes, 3 times a day - keep your appointment with your doctor as scheduled for tomorrow, 03/23/19 - you had bloodworkd drawn today - these results take 1-2 days to return - if there are concerning results you will receive a call from a care hat steamer - Okay to alternate ibuprofen (Advil, Motrin) and tylenol every 3 hours for pain. Take with food. Do NOT take for more than 4-5 days - If you have increased reddness, fevers, pain or ANY other concerns it is recommended you go to the emergency department for further evaluation and treatment - Billing Disposition and Condition Condition: STABLE Disposition: Home
[2019-03-22 19:42] LABS: ABS Basophils 0.1 10^3/ul (0-0.2); ABS Eosinophils 0.1 10^3/ul (0-0.6); ABS Lymphocytes 2.5 10^3/ul (1.0-4.8); ABS Monocytes 0.5 10^3/ul (0-0.8); ABS Neutrophils 6.2 10^3/ul (1.5-7.7); ABS Nucleated RBC 0.1 10^3/ul; Hematocrit 47 % (42-52); Hemoglobin 16.4 g/dL (14.0-18.0); Lymphocyte % 26.8 %; Mean Corpuscular HGB Conc 35 g/dL (31-36); Mean Corpuscular Hemoglobin 32 pg (27-31); Mean Corpuscular Volume 90 fL (80-94); Mean Platelet Volume 8.7 fL (7.4-10.4); Nucleated Red Blood Cells % 0.6; Platelet Count 242 10^3/uL (150-450); Red Blood Count 5.18 10^6 /uL (4.18-5.48); Red Cell Distribution Width 13 % (10-15); White Blood Count 9.5 10^3/uL (3.5-10.8)
[2019-03-22 19:49] LABS: Potassium 4.3 mmol/L (3.5-5.0)
[2019-03-22 19:55] LABS: BUN/Creatinine Ratio 16.5 (8-20); EGFR African American 120.9 (>60); EGFR Non-African American 99.9 (>60)
== END 2019-03-22 16:59 | disposition home or self-care (01) ==
LOC: UCEAST 14:53
DX: S61.256A Open bite of right little finger without damage to nail, initial encounter (principal); W55.01XA Bitten by cat, initial encounter; Y92.019 Unspecified place in single-family (private) house as the place of occurrence of the external cause; F41.9 Anxiety disorder, unspecified; F17.210 Nicotine dependence, cigarettes, uncomplicated; Z88.2 Allergy status to sulfonamides
CPT/HCPCS: 36415; 73140; 80048; 85025; 99212; G0463

== ENCOUNTER 2019-05-09 18:06 | Emergency (ER) | payer OTHER ==
--- OUTSIDE RECORDS SUMMARY | 2019-05-09 19:03 | XMS REPORT | Summary of Care ---
:1990 Author Organization [facility] Address [address] [facility] [place] [address] Care Team Providers Name Role Phone Jordan Sawyer MD Primary Care Provider Reason for Visit Reason Comments ER F/U Patient was seen at the [facility] [place] yesterday for a cat bite. The cat was his mothers wooden jolene. Encounter Details Date Type Department Care Team Description 03/23/2019 Office Visit [place] [facility] Belen Lilly, Infected cat bite of Practice APPLICATION DBA finger, initial [address] encounter (Primary Dx) [place] [address] [place] [address] [phone] Allergies Active Allergy Reactions Severity Noted Date Comments Amoxicillin Rash 01/09/2008 Bee Anaphylaxis 02/12/2009 Sulfa Antibiotics Hives 01/09/2008 documented as of this encounter (statuses as of 03/23/2019) Medications Medication Sig Dispensed Refills Start Date End Date Status Cdacdfr-Loyvplmznkjfc-U Take by mouth. 0 Active affeine (EXCEDRIN PO) EPINEPHrine (EPIPEN 1 Syringe by 1 Device 1 05/21/2013 Active 2-NICHO) 0.3 MG/0.3ML Injection route Injection Device NEEDED (anaphylaxis). clotrimazole (LOTRIMIN) Twice daily 1 Tube 0 09/21/2018 Active 1 % Apply externally CreamIndications: Tinea pedis of both feet albuterol HFA Take 2 Puffs by 1 Inhaler 1 11/08/2018 Active (VENTOLIN) 108 (90 inhalation EVERY Base) MCG/ACT FOUR HOURS Inhalation Aero NEEDED (shortness SolnIndications: of breath, cough Asthma, unspecified or wheeze). asthma severity, unspecified whether complicated, unspecified whether persistent triamcinolone Twice daily to 1 Tube 0 11/08/2018 Active (KENALOG,ARISTOCORT) affected area. No 0.1 % Apply externally more than 2 weeks CreamIndications: Eczema, unspecified type sertraline (ZOLOFT) 100 Take 1 Tab by 60 Tab 0 01/30/2019 Active MG Oral TabIndications: mouth DAILY. Anxiety and depression divalproex (DEPAKOTE 0 02/13/2019 Active ER) 500 MG Oral TABLET SR 24 HR Omeprazole 40 MG Oral Take 1 Cap by 30 Cap 2 02/14/2019 Active CAPSULE DELAYED mouth DAILY. RELEASEIndications: Gastroesophageal reflux disease, esophagitis presence not specified documented as of this encounter (statuses as of 03/23/2019) Active Problems Problem Noted Date Tobacco use [...] as of this encounter (statuses as of 03/23/2019) Resolved Problems Problem Noted Date Resolved Date Left ankle sprain 07/09/2014 06/05/2016 SHELLFISH ALLERGY 09/21/2018 Overview: anaphylaxis documented as of this encounter (statuses as of 03/23/2019) Immunizations Name Administration Dates Next Due DTAP [...] Sign Reading Time Taken Comments Blood Pressure 124/74 03/23/2019 2:24 PM EDT Pulse 62 03/23/2019 2:24 PM EDT Temperature 36.3 03/23/2019 2:24 PM EDT C (97.4 F) Respiratory Rate - - Oxygen Saturation - - Inhaled Oxygen Concentration - - Weight 77.6 kg (171 lb) 03/23/2019 2:24 PM EDT Height 177.8 cm (5' 10") 03/23/2019 2:24 PM EDT Body Mass Index 24.54 03/23/2019 2:24 PM EDT documented in this encounter Patient Instructions Patient InstructionsBelen Lilly FNP - 03/23/2019 2:20 PM EDTSoak hand daily in epsom salt Finish antibiotic Activity as tolerated Call if increased redness, swelling or pus documented in this encounter Progress Notes Belen Lilly FNP - 03/23/2019 2:20 PM EDT PATIENT: Adolph Crow : 1990 DATE OF SERVICE: 03/23/2019 CHIEF COMPLAINT: Chief Complaint Patient presents with ER F/U Patient was seen at the [facility] yesterday for a cat bite. The cat was his mothers wooden jolene. Subjective HISTORY OF PRESENT ILLNESS: Adolph Crow is a 28-y.o. male. HPI Bitten by moms cat earlier this week - went to [facility] yesterday due to increased redness, swelling and pain. Reports reviewed - WBC 9.5, Pt was already on clindamycin for dental issue , Doxy added. Pain, swelling and redness better today Past Medical History: Diagnosis Date Acne Anxiety [...] NEEDED (shortness of breath, cough or wheeze). Vnjjpak-Kwehukrgwbjen-Mgtzqaex (EXCEDRIN PO) Take by mouth. clotrimazole (LOTRIMIN) [...] heavily. none since may 2018. going to AA Drug use: Yes Types: Marijuana Comment: did cocaine in past. 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 Musculoskeletal: Positive for myalgias. Objective PHYSICAL EXAM: VITALS: BP 124/74 | Pulse 62 | Temp 97.4 F (36.3 C) | Ht 5' 10" ( 1.778 m) | Wt 171 lb (77.6 kg) | BMI 24.54 kg/m Body mass index is 24.54 kg/m. Physical Exam Constitutional: He is oriented to person, place, and time. Vital signs are normal. He appears well-developed and well-nourished. HENT: Head: Normocephalic and atraumatic. Musculoskeletal: Hands: Lymphadenopathy: Right: Epitrochlear adenopathy present. Neurological: He is alert and oriented to person, place, and time. No cranial nerve deficit or sensory deficit. Skin: Skin is warm and dry. No ecchymosis noted. There is erythema. Vitals reviewed. ASSESSMENT / IMPRESSION: ICD-9-CM ICD-10-CM 1. Infected cat bite of finger, initial encounter 883.1 S61.259A E906.3 L08.9 W55.01XA Plan Soak hand daily in epsom salt Finish antibiotic Activity as tolerated Call if increased redness, swelling or pus Author: CAS Alicia 03/23/2019 14:58 documented in this encounter Plan of Treatment [...] filedocumented in this encounter Visit Diagnoses Diagnosis Infected cat bite of finger, initial encounter - Primary documented in this encounter documented as of this encounter
--- NOTE | 2019-05-09 19:24 | UC ---
Skin Complaint HPI - HPI Summary HPI Summary: 28 yo male presents with rash. He tells me that he has a long history of hives and has had multiple allergy testings throughout his life. This morning he woke up with hives to his right wrist which, since that time, have spread to his arms , legs, and feet. He took a benadryl earlier today and that helped a little. Rash is itchy. For the first time, last night he had a red additive in water - wonders if he is allergic to the red dye. He denies facial swelling, SOB, wheezing, difficulty breathing, chest pain, n/v. - History of Current Complaint Time Seen by Provider: 05/09/19 19:23 Stated Complaint: RASH Onset/Duration: Gradual Onset Onset Severity: Mild Current Severity: Mild Pain Intensity: 3 Pain Scale Used: 0-10 Numeric - Allergy/Home Medications Allergies/Adverse Reactions: Allergies Allergy/AdvReac Type Severity Reaction Status Date / Time amoxicillin Allergy Hives Verified 05/09/19 19:24 Sulfa (Sulfonamide Allergy Hives Verified 05/09/19 19:24 Antibiotics) Home Medications: Home Medications Lurasidone(*) [Latuda] 40 mg PO DAILY 05/09/19 [History Confirmed 05/09/19] Naltrexone TAB* 50 mg PO DAILY 05/09/19 [History Confirmed 05/09/19] Omeprazole 40 mg PO DAILY 05/09/19 [History Confirmed 05/09/19] Sertraline* [Zoloft*] 100 mg PO DAILY 05/09/19 [History Confirmed 05/09/19] PMH/Surg Hx/FS Hx/Imm Hx - Additional Past Medical History Additional PMH: Allergies GI/ History: Gastroesophageal Reflux Psychological History: Anxiety, Depression, Bipolar Disorder Other History Of: Negative For: HIV, Anticoagulant Therapy - Surgical History Surgical History: Yes Surgery Procedure, Year, and Place: appy - Family History Known Family History: Positive: Cardiac Disease, Non-Contributory Negative: Hypertension, Diabetes - Social History Lives: With Family Alcohol Use: None Alcohol Amount: H/o abuse Substance Use Type: Marijuana Smoking Status (MU): Light Every Day Tobacco Smoker Type: Cigarettes Amount Used/How Often: 1 pack daily Have You Smoked in the Last Year: Yes When Did the Patient Quit Smoking/Using Tobacco: 05/03/18 Review of Systems All Other Systems Reviewed And Are Negative: No Constitutional: Positive: Negative Skin: Positive: Rash Respiratory: Positive: Negative Cardiovascular: Positive: Negative Gastrointestinal: Positive: Negative Neurological: Positive: Negative Psychological: Positive: Negative Physical Exam - Summary Physical Exam Summary: GENERAL: NAD. WDWN. No pain distress. SKIN: Diffuse scattered urticaria on arms, legs, hands, feet, and torso. No open wounds, abscess, streaking. HEENT: No periorbital, lip, or other facial edema. Airway patent without oropharyngeal edema. NECK: Supple. Nontender. No lymphadenopathy. CHEST: CTAB. No wheezing. No accessory muscle use. Breathing comfortably and in no distress. CV: RRR. Pulses intact. Cap refill <2seconds NEURO: Alert. PSYCH: Age appropriate behavior. Triage Information Reviewed: Yes Vital Signs: Vital Signs: Temp Pulse Resp BP Pulse Ox 98.1 F 69 18 110/73 100 05/09/19 19:26 05/09/19 19:26 05/09/19 19:26 05/09/19 19:26 05/09/19 19:26 Vital Signs Reviewed: Yes Course/Dx - Course Course Of Treatment: Suspect allergic reaction or sensitivity. In the clinic he was given pepcid and solumedrol IM. Will rx for prednisone, benadryl, and pepcid. 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 - Diagnoses Provider Diagnosis: Urticaria Discharge ED - Sign-Out/Discharge Documenting (check all that apply): Patient Departure All imaging exams completed and their final reports reviewed: No Studies - Discharge Plan Condition: Stable Disposition: HOME Prescriptions: diphenhydrAMINE HCl [Benadryl Allergy] 25 mg PO Q6H #30 tablet Famotidine TAB* [Pepcid 20 MG TAB*] 20 mg PO DAILY #10 tab predniSONE TAB* [Deltasone 20 MG TAB*] 60 mg PO DAILY #15 tab Patient Education Materials: Urticaria (ED) Referrals: Lb Wilkerson DO [Primary Care Provider] - Additional Instructions: If you develop a fever, shortness of breath, chest pain, new or worsening symptoms - please call your PCP or go to the ED immediately. - Take prednisone exactly as prescribed until gone - starting tomorrow - Okay to take Benadryl 25mg every 6 hours as needed for itching and hives. This medication may cause drowsiness - do NOT drive, operate machinery or drink alcohol while taking Benadryl -Avoid getting over-heated (hot showers, hot tubs, exercise) for at least 48 hours - Try to avoid aspirin, NSAIDs (Motrin, Aleve, Naprosyn) for 2-3 days - Okay to apply cool compresses to the area of injury -Contact your doctor or return here with questions or concerns - Billing Disposition and Condition Condition: STABLE Disposition: Home
[2019-05-09 19:31] VITALS: BP 110/73
[2019-05-09] MEDS ORDERED: Famotidine TAB* 20 MG PO ONE (19:40)
[2019-05-09] MEDS ORDERED: methylPREDNISolone 125 MG* 2 ML VIAL IM ONE (19:40)
== END 2019-05-09 19:58 | disposition home or self-care (01) ==
LOC: UCEAST 18:06
DX: L50.9 Urticaria, unspecified (principal); F31.9 Bipolar disorder, unspecified; F41.9 Anxiety disorder, unspecified; F32.9 Major depressive disorder, single episode, unspecified; F17.210 Nicotine dependence, cigarettes, uncomplicated; K21.9 Gastro-esophageal reflux disease without esophagitis; Z79.899 Other long term (current) drug therapy; Z88.0 Allergy status to penicillin; Z88.2 Allergy status to sulfonamides
CPT/HCPCS: 96372; 99212; A9270-GY; G0463; J2930